=== PATIENT | male | born 1960 | race Caucasian/White ===

== ENCOUNTER 2019-05-14 06:59 | Emergency (ER) | payer BC ==
[2019-05-14] MEDS ORDERED: Albuterol 2.5 MG/3 ML NEB.SOL* (0.083%) INH ONE (07:21)
--- NOTE | 2019-05-14 07:24 | ED ---
Influenza-Like Illness - HPI Summary HPI Summary: This pt is a 58 Y/OM presenting to [facility] with a CC of waking up with CP that is rated a 3/10 in severity this morning. He states that he also had a headache and was diaphoresis without chills. He states that he has myalgia as well. He reports SOB with a productive cough. He states that he has been feeling poor for the past couple of weeks and his symptoms worsened overnight. He denies any N/V/D. He has no aggravating or alleviating factors. He denies any pertinent PMHx. He states that he has a SHx of smoking cigarettes. - History of Current Complaint Chief Complaint: EDChestWallPain Time Seen by Provider: 05/14/19 07:10 Hx Obtained From: Patient Onset/Duration: Gradual Onset, Lasting Weeks, Still Present, Worse Since - this morning Severity: Mild Associated Signs & Symptoms: Negative - N/V/D, Myalgia, Cough - productive, Headache Related Hx: Smoking - Allergy/Home Medications Allergies/Adverse Reactions: Allergies Allergy/AdvReac Type Severity Reaction Status Date / Time No Known Allergies Allergy Verified 05/14/19 07:30 Home Medications: Home Medications Albuterol HFA INHALER* [Ventolin HFA Inhaler*] 2 puff INH Q6H PRN #1 mdi [Rx] predniSONE 20 mg TAB [Deltasone 20 MG TAB*] 40 mg PO DAILY 4 Days #8 tab [Rx] PMH/Surg Hx/FS Hx/Imm Hx Previously Healthy: Yes Endocrine/Hematology History: Denies: Hx Diabetes Cardiovascular History: Denies: Hx Hypertension, Hx Pacemaker/ICD Sensory History: Denies: Hx Hearing Aid Psychiatric History: Denies: Hx Panic Disorder - Cancer History Hx Chemotherapy: No Hx Radiation Therapy: No - Surgical History Surgical History: Yes Surgery Procedure, Year, and Place: APPENDECTOMY - Immunization History Date of Tetanus Vaccine: Unknown Date of Influenza Vaccine: None Immunizations Up to Date: Yes Infectious Disease History: No Infectious Disease History: Denies: History Other Infectious Disease, Traveled Outside the [place] in Last 30 Days - Family History Known Family History: Positive: Cardiac Disease, Diabetes - Social History Occupation: Retired Lives: Alone Alcohol Use: Rare Hx Substance Use: No Substance Use Type: Reports: None Hx Tobacco Use: Yes Smoking Status (MU): Current Every Day Smoker Type: Cigarettes Amount Used/How Often: 1/2 ppd Review of Systems Positive: Skin Diaphoresis. Negative: Chills Positive: Chest Pain Positive: Shortness Of Breath, Cough - productive Negative: Vomiting, Diarrhea, Nausea Positive: Headache All Other Systems Reviewed And Are Negative: Yes Physical Exam - Summary Physical Exam Summary: Constitutional: Well-developed, Well-nourished, Alert. (-) Distressed Skin: Warm, Dry HENT: Normocephalic; Atraumatic Eyes: Conjunctiva normal Neck: Musculoskeletal ROM normal neck. (-) JVD, (-) Stridor, (-) Tracheal deviation Cardio: Rhythm regular, rate normal, Heart sounds normal; Intact distal pulses; The pedal pulses are 2+ and symmetric. Radial pulses are 2+ and symmetric. (-) Murmur Pulmonary/Chest wall: Effort normal. (-) Respiratory distress, (-) Wheezes, (-) Rales, Prolonged expiratory phase Abd: Soft, (-) tenderness, (-) Distension, (-) Guarding, (-) Rebound Musculoskeletal: (-) Edema Lymph: (-) Cervical adenopathy Neuro: Alert, Oriented x3 Psych: Mood and affect Normal Triage Information Reviewed: Yes Vital Signs On Initial Exam: Initial Vitals Temp Pulse Resp BP Pulse Ox 97.5 F 78 16 114/78 97 05/14/19 07:00 05/14/19 07:00 05/14/19 07:00 05/14/19 07:00 05/14/19 07:00 Vital Signs Reviewed: Yes Procedures - Sedation Patient Received Moderate/Deep Sedation with Procedure: No Diagnostics - Vital Signs Vital Signs Temp Pulse Resp BP Pulse Ox 05/14/19 07:00 97.5 F 78 16 114/78 97 - Laboratory Result Diagrams: 05/14/19 07:27 05/14/19 07:27 Lab Statement: Any lab studies that have been ordered have been reviewed, and results considered in the medical decision making process. - Radiology CXR Radiology Interpretation Completed By: Radiologist Summary of Radiographic Findings: COPD. SMALL LEFT PLEURAL EFFUSION VERSUS CHRONIC PLEURAL THICKENING. ED physician has reviwed this report. - EKG 0703 Cardiac Rate: NL - 85 BPM EKG Rhythm: Sinus Rhythm ST Segment: Normal Summary of EKG Findings: EKG at 0703 reveals normal sinus rhythm with rate of 85 BPM, no acute changes, no ischemic changes. Biphasic P waves in V2. This EKG was reviewed and interpreted by Dr. Hernandez at 05/14/2019 0705. Flu Symptom Course/Dx - Course Course Of Treatment: Patient is here with shortness of breath and cough for the past couple weeks. He is overall well-appearing. Patient had blood tests performed for grossly unremarkable. Patient had a negative rapid influenza swab. Patient had a chest x-ray which showed left pleural thickening which is likely chronic in nature. Patient is told he needs to follow up this primary care doctor who he was referred to to make sure this is not cancer. - Diagnoses Provider Diagnoses: Cough, SOB (shortness of breath) Discharge ED - Sign-Out/Discharge Documenting (check all that apply): Patient Departure - discharge - Discharge Plan Condition: Good Disposition: HOME Prescriptions: Albuterol HFA INHALER* [Ventolin HFA Inhaler*] 2 puff INH Q6H PRN #1 mdi PRN Reason: Cough predniSONE 20 mg TAB [Deltasone 20 MG TAB*] 40 mg PO DAILY 4 Days #8 tab Patient Education Materials: Acute Cough (ED), Shortness of Breath (ED) Forms: *Work Release Referrals: [facility] [Outside] - 2 Days [facility] REFERRAL [Outside] - 2 Days Additional Instructions: Please take your medications as prescribed. You should schedule a visit with [facility] and [facility] physician referral group [facility] due to the concerns on your CXR which warrant a follow up visit. Currently you have pleural thickening which can be indicative of cancer. Return to the emergency department for any new or worsening symptoms. - Billing Disposition and Condition Condition: GOOD Disposition: Home - Attestation Statements Document Initiated by Omid: Yes Documenting Scribe: Montrell Valdovinos Provider For Whom Omid is Documenting (Include Credential): Kevin Hernandez MD Scribe Attestation: Montrell Nieto scribed for Kevin Hernandez MD on 05/15/19 at 0952. Scribe Documentation Reviewed: Yes Provider Attestation: The documentation as recorded by the Montrell lopez accurately reflects the service I personally performed and the decisions made by , Kevin Hernandez MD Status of Scribe Document: Viewed
[2019-05-14 07:34] LABS: ABS Basophils 0.1 10^3/ul (0-0.2); ABS Eosinophils 0.2 10^3/ul (0-0.6); ABS Lymphocytes 2.3 10^3/ul (1.0-4.8); ABS Monocytes 0.9 10^3/ul (0-0.8); ABS Neutrophils 9.7 10^3/ul (1.5-7.7); Eosinophil % 1.3 %; Hematocrit 43 % (42-52); Hemoglobin 14.9 g/dL (14.0-18.0); Lymphocyte % 17.5 %; Mean Corpuscular HGB Conc 35 g/dL (31-36); Mean Corpuscular Hemoglobin 32 pg (27-31); Mean Corpuscular Volume 91 fL (80-94); Mean Platelet Volume 6.8 fL (7.4-10.4); Platelet Count 299 10^3/uL (150-450); Red Cell Distribution Width 14 % (10-15); White Blood Count 13.1 10^3/uL (3.5-10.8)
[2019-05-14 07:51] LABS: Albumin 4.3 g/dL (3.2-5.2); Albumin/Globulin Ratio 1.3 (1-3); BUN/Creatinine Ratio 17.4 (8-20); Calcium 9.3 mg/dL (8.6-10.3); EGFR African American 66.9 (>60); EGFR Non-African American 55.3 (>60); Globulin 3.3 g/dL (2-4); Potassium 3.6 mmol/L (3.5-5.0); Total Bilirubin 0.7 mg/dL (0.2-1.0); Total Protein 7.6 g/dL (6.4-8.9)
[2019-05-14 07:53] LABS: Troponin I 0.01 ng/mL (<0.03)
[2019-05-14 08:37] LABS: Influenza A Molecular Negative (Negative); Influenza B Molecular Negative (Negative)
[2019-05-14 08:47] VITALS: BP 149/49
== END 2019-05-14 08:58 | disposition home or self-care (01) ==
LOC: ED 06:59
DX: J44.9 Chronic obstructive pulmonary disease, unspecified (principal); J90 Pleural effusion, not elsewhere classified; R05 Cough; R06.02 Shortness of breath; F17.210 Nicotine dependence, cigarettes, uncomplicated; R94.31 Abnormal electrocardiogram [ECG] [EKG]
CPT/HCPCS: 36415; 71046; 80053; 84484; 85025; 93005; 99284; J7512